=== PATIENT | male | born 1950 | race Caucasian/White ===

== ENCOUNTER → 2016-08-19 | Outpatient (CLI) | payer OTHER, MEDICARE ==
[~2016-08-19] VITALS: Ht 170.2 cm; Wt 80.7 kg
[~2016-08-19] MED LIST: ACYCLOVIR 200200 MG PO; AMBIEN 5 MG TABL5 M1 PO; BACTRIM 400-801 EACH PO; DEXILANT60 MG PO; FLONASE 0.05%50 MCG NASAL; LEXAPRO 10 MG T10 M1 PO; MIDODRINE HCL10 MG PO; NEORAL100 MG PO; NEPHROCAPS SOFT1 CAP PO; NORCO 5-325 TA1 EACH PO; ONDANSETRON HCL4 M2 PO; PREDNISONE 10 M10 MG PO; PROCRIT20000 UNIT INJ; TIZANIDINE HCL 22 M1 PO; VITAMIN D2000 UNI1 PO; VITAMIN E400 UNI2 PO; ZANTAC 150MG T150 M1 PO
--- NOTE | ~2016-08-19 | HPC ---
[facility] [place] [address] PAIN MANAGEMENT CONSULTATION Name: KEENAN MARTINEZ Room #: REG [facility] Andrea.#: [id number] Admission: 08/19/16 Attend Phys: Matthew Musa DO Discharge: Date of : 52 Report #: [id number] THIS REPORT FOR: //name// CC: HANNA Gerardo MD HISTORY OF PRESENT ILLNESS: The patient is a 66-year-old gentleman seen in consultation at the request of Dr. Gerardo for evaluation of pain in the left low back. The patient notes he had some chronic axial back pain for the past year or so. He has developed acute stabbing sensation in the left low back that seems to be exacerbated with particular movements and/or standing, describes intermittent yet steady cramping, aching, sharp pain, ranging anywhere from a 4-6 on a 0-10 visual analog scale. He denies any radicular symptoms, no pain radiating to the buttocks or legs, no paresthesia or bowel or bladder continence changes. He is anuric secondary to end-stage renal disease. REVIEW OF SYSTEMS: Complete review of systems attached to chart and gone over with the patient. He is , seen in the company of his who is supportive. He does not smoke or drink alcohol to excess. States in 2012, he was diagnosed with idiopathic pulmonary fibrosis. While undergoing pulmonary transplant in [place], apparently had an acute renal event and has been anuric and on daily dialysis since. He is on high dose immunosuppressants, had developed CMV conversion and takes acyclovir. He does home dialysis. He takes Dexilant for some gastroesophageal reflux. He has a little bit of chronic anxiety for which he takes Lexapro and trazodone, though he states he is generally an "upbeat" gentleman. He is a retired vitale, has been retired for the past five years. States he had a concern about some cognitive impairment as he tried to help a neighbor with the deck last year and had a number of "simple errors" building the deck. 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 Apparently, a neurologic workup was fairly unremarkable for significant cognitive defect. The pain and back score is 17 out of 70. PHYSICAL EXAMINATION: VITAL SIGNS:: Reveals a 5 feet 7 inches, 180 pounds gentleman, BMI is 27.9 kilograms per meter squared. Blood pressure is fairly low at 88/61, pulse 83, respirations are 14. Room air oxygen saturation 97%. NEUROLOGIC: Cranial 2-12 are grossly intact. HEENT: Pupils are equal, reactive to light and accommodation. Extraocular muscles are intact. Thyroid is unremarkable. He does not have any significant nystagmus with lateral gaze deviation. MUSCULOSKELETAL: Upper extremity strength is preserved. [address] [address] PAIN MANAGEMENT CONSULTATION Name: KEENAN MARTINEZ Room #: REG [facility] Leal#: [id number] Admission: 08/19/16 Attend Phys: Matthew Musa DO Discharge: Date of : 52 Report #: [id number] HEART: Regular rhythmical. LUNGS: Generally clear throughout. NEUROLOGIC: Has a modestly endomorphic build. Rises from chair using armrest. Gait is tandem. Lower extremity strength is objectively symmetric at 4/5 to all muscle groups tested. Patellar reflexes 1/4 and symmetric with isometric contraction, Achilles reflexes 1/4 symmetrically. He does have some tenderness in the right knee and notes he is status post arthroscopy last October. Straight leg raise is negative. He is very tender over the left low back and the lumbar paravertebral muscles generally around the L4 area, SI test is unremarkable. Danish test is negative. SKIN: Integument is intact. DIAGNOSTIC STUDIES: There are no recent diagnostic studies of the axial spine available at this time. ASSESSMENT: Symptomatic myofascial pain with left lumbar paravertebral muscle tenderness in a gentleman who is anuric due to end-stage renal disease, status post pulmonary transplant due to idiopathic pulmonary fibrosis. RECOMMENDATIONS: We will start the patient on tizanidine 2 mg, 1-2 tablets 3 times a day. The patient cautioned about this interfering with hypotension and some subjective syncope. We can do a trigger point injection if the pain becomes problematic, though presently it is fairly nominal. Lastly, we talked about [id number] nonsteroidal anti-inflammatory medication, naproxen sodium (Aleve 220 mg) the reasonable drug to take once or twice a day. We will defer to Dr. Gerardo regarding this agent, but again the patient has complete end-stage renal disease, so I do not think this should be significantly contraindicated. We will have the patient take it with food and generally watch for the usual concerns for gastroesophageal reflux and cautioned about daily use in association with increased cardiac risk. However, I think p.r.n. use would certainly be reasonable. Again, we will defer to Dr. Gerardo. The patient was discharged with a prescription for tizanidine. I will be happy to see him as needed if pain occurs significantly to the point that we need to think about trigger point injection. Thank you for allowing me to participate in the patient's care, I will keep you abreast of his progress. <ELECTRONICALLY SIGNED> By: Matthew Musa DO 08/24/16 [id number] Matthew Musa DO /nt
[2016-08-19 14:25] VITALS: BP 88/61
== END ==
LOC: PAIN 07:35
DX: M79.1 Myalgia (principal); N18.6 End stage renal disease; K21.9 Gastro-esophageal reflux disease without esophagitis